=== PATIENT | male | born 1955 | race Caucasian/White ===

== ENCOUNTER → 2020-07-08 14:30 | Outpatient (CLI) | payer MEDICARE, MEDICAID, SELFPAY ==
[2020-07-08 15:38] LABS: Basophils # 0.1 K/mm3 (0-0.2); Basophils % 0.4 % (0.1-2.0); Eosinophils # 0.6 K/mm3 (0.0-0.4); Hematocrit 43.9 % (42.0-52.0); Lymphocytes # 3.2 K/mm3 (0.7-4.5); Lymphocytes % 22.2 % (10-50); Mean Corpuscular HGB Conc 34.1 g/dL (31.8-35.4); Mean Corpuscular Hemoglobin 31.4 pg (27.0-31.2); Mean Platelet Volume 8.7 fl (7.4-10.4); Monocytes # 0.9 K/mm3 (0.1-1.0); Monocytes % 6.3 % (1.7-9.3); Neutrophils # 9.6 K/mm3 (1.8-7.8); Neutrophils % 66.9 % (37.0-80.0); Platelet Count 317 K/mm3 (142-424); Red Blood Count 4.77 M/mm3 (4.60-6.20); Red Cell Distribution Width 13.7 % (11.5-17.5); White Blood Count 14.3 K/mm3 (4.8-10.8)
[2020-07-08 15:48] LABS: Alanine Aminotransferase 19 U/L (12-78); Albumin Level 3.9 g/dl (3.5-5.0); Albumin/Globulin Ratio 1.3 (1.1-1.8); Alkaline Phosphatase 99 U/L (38-126); Anion Gap 13.6 mEq/L (5-15); Aspartate Amino Transferase 23 U/L (17-59); Bilirubin,Total 0.4 mg/dl (0.2-1.3); Blood Urea Nitrogen 29 mg/dl (9-20); Calcium 9.2 mg/dl (8.4-10.2); Carbon Dioxide 21 mmol/L (22.0-30.0); Chloride 107 mmol/L (98-107); Chol/HDL Ratio 2.9 (1-3.5); Cholesterol 126 mg/dl (140-200); Estimated Glomerular Filt Rate 51 ml/min (>60); GFR (African American) 61 ML/MIN (>60); Globulin 3.1 g/dL (1.3-3.2); Glucose 118 mg/dl (74-100); HDL Cholesterol 44 mg/dl (40-60); Potassium 4.6 mmoL/L (3.5-5.1); Sodium 137 mmol/L (136-145); Triglycerides 140 mg/dl (30-150); VLDL Cholesterol 28 mg/dL (0-40)
[2020-07-08 16:00] LABS: Direct LDL Cholesterol 53.57 mg/dL (100-129)
[2020-07-08 16:06] LABS: T4 (Thyroxine) 9.3 ug/dl (5.53-11.0)
[2020-07-08 16:19] LABS: Prostate Specific Ag Screen 0.4 ng/ml (0.0-4.0); Thyroid Stimulating Hormone 2.52 uIU/mL (0.465-4.68)
[2020-07-08 17:01] LABS: Hemoglobin A1C 6.6 % (4.0-6.0)
[2020-07-16 10:38] LABS: Testosterone, Total, LC/MS 468.4 ng/dL (264.0-916.0); Testosterone,Free 4.4 pg/mL (6.6-18.1)
== END ==
PROVIDERS: Visit Provider Family Medicine
DX: E11.9 Type 2 diabetes mellitus without complications (principal); E78.5 Hyperlipidemia, unspecified; I25.10 Atherosclerotic heart disease of native coronary artery without angina pectoris; Z12.5 Encounter for screening for malignant neoplasm of prostate; Z79.4 Long term (current) use of insulin
CPT/HCPCS: 80053; 80061; 83036; 84402; 84403; 84436; 84443; 85025; G0103

== ENCOUNTER → 2020-08-12 14:12 | Outpatient (CLI) | payer MEDICARE, MEDICAID, SELFPAY ==
[2020-08-12 14:25] LABS: Creatinine,Urine Random 81 mg/dL (Not Estab.)
[2020-08-12 14:30] LABS: Microalbumin/Creatinine Ratio 39.1
== END ==
PROVIDERS: Visit Provider Family Medicine
DX: E11.9 Type 2 diabetes mellitus without complications (principal); Z79.4 Long term (current) use of insulin
CPT/HCPCS: 82043; 82570

== ENCOUNTER → 2021-01-03 11:52 | Outpatient (CLI) | payer MEDICARE, MEDICAID, SELFPAY | PROVIDERS: Visit Provider Family Medicine | DX: Z01.812 Encounter for preprocedural laboratory examination (principal); Z20.822 Contact with and (suspected) exposure to COVID-19; G47.30 Sleep apnea, unspecified; I10 Essential (primary) hypertension; G47.10 Hypersomnia, unspecified; R06.83 Snoring; E66.9 Obesity, unspecified; Z68.41 Body mass index [BMI] 40.0-44.9, adult | CPT/HCPCS: U0003 ==

== ENCOUNTER → 2021-01-05 19:57 | Outpatient (CLI) | payer MEDICARE, MEDICAID, SELFPAY | PROVIDERS: PCP Family Medicine; Visit Provider Family Medicine | DX: G47.30 Sleep apnea, unspecified (principal); I10 Essential (primary) hypertension; R40.0 Somnolence; R06.83 Snoring; E66.9 Obesity, unspecified | CPT/HCPCS: 95810 ==

== ENCOUNTER → 2021-04-15 18:51 | Outpatient (CLI) | payer MEDICARE, MEDICAID, SELFPAY | PROVIDERS: Visit Provider Family Medicine | DX: L98.9 Disorder of the skin and subcutaneous tissue, unspecified (principal) | CPT/HCPCS: 87070; 87077; 87186; 87205 ==